=== PATIENT | female | born 1955 | race American Indian/Alaskan Native ===

== ENCOUNTER 2021-02-09 05:10 | Emergency (ER) | payer MEDICARE ==
[2021-02-09 09:15] VITALS: BP 135/72
--- NOTE | 2021-02-09 09:32 | XRay Report ---
CHEST 2 VIEWS INDICATION: cough, hemoptysis. COMPARISON: None FINDINGS: Support devices: None. Heart: Within normal limits. Lungs/pleura: No acute air space or interstitial disease. No pneumothorax. Additional findings: None. IMPRESSION: No acute findings. Signer Name: Luis Navarrete Jr, MD Signed: 02/09/2021 9:27 AM Workstation Name: [id number]
--- NOTE | 2021-02-09 10:00 | Emergency Department Report ---
ED General Adult HPI - General Chief complaint: Sore Throat Stated complaint: BLOOD IN PHLEGM Time Seen by Provider: 02/09/21 08:04 Source: patient Mode of arrival: Ambulatory Limitations: No Limitations - History of Present Illness Initial comments: 65-year-old -[place] female patient presents with complaints of coughing up blood this morning. She has a history of hypertension and states compliance with her medications. She denies any preceding shortness of breath, chest pain, fever/chills/sweats, recent known sick contacts, abdominal pain, abnormal bruising, melena/hematochezia, or hematemesis/coffee-ground emesis. She does report a flight from the [facility] 3 weeks ago, but denies any leg pain/swelling, hormone use, or history of DVT/PE/cancer. -: Sudden - Related Data Allergies Allergy/AdvReac Type Severity Reaction Status Date / Time No Known Allergies Allergy Unverified 02/09/21 05:24 ED Review of Systems ROS: Stated complaint: BLOOD IN PHLEGM Other details as noted in HPI Constitutional: denies: chills, diaphoresis, fever, malaise, weakness ENT: denies: throat pain Respiratory: cough. denies: shortness of breath, SOB with exertion, SOB at rest Cardiovascular: denies: chest pain Gastrointestinal: denies: abdominal pain, nausea, vomiting Neurological: denies: headache Hematological/Lymphatic: denies: easy bleeding ED Past Medical Hx - Past Medical History Previous Medical History?: Yes Hx Hypertension: Yes - Surgical History Past Surgical History?: No - Social History Smoking Status: Never Smoker Substance Use Type: None ED Physical Exam - General Limitations: No Limitations General appearance: alert, in no apparent distress - Head Head exam: Present: atraumatic, normocephalic - Eye Eye exam: Present: normal appearance. Absent: scleral icterus - Neck Neck exam: Present: normal inspection - Respiratory Respiratory exam: Present: normal lung sounds bilaterally. Absent: respiratory distress, chest wall tenderness - Cardiovascular Cardiovascular Exam: Present: regular rate, normal rhythm. Absent: systolic murmur, diastolic murmur, rubs, gallop - GI/Abdominal GI/Abdominal exam: Present: soft. Absent: distended, tenderness, guarding - Extremities Exam Extremities exam: Absent: calf tenderness (No swelling or tenderness noted bilaterally to lower extremities) - Neurological Exam Neurological exam: Present: alert, oriented X3, normal gait - Psychiatric Psychiatric exam: Present: normal affect, normal mood - Skin Skin exam: Present: warm, dry, intact, normal color. Absent: rash, cyanosis, diaphoretic, petechiae, ecchymosis ED Course Vital Signs 02/09/21 02/09/21 05:21 08:51 Temperature 97.9 F Pulse Rate 109 H 71 Respiratory 18 Rate Blood Pressure 148/82 135/72 O2 Sat by Pulse 98 98 Oximetry ED Medical Decision Making - Lab Data Result diagrams: 02/09/21 09:43 02/09/21 09:43 Lab Results 02/09/21 02/09/21 02/09/21 Range/Units 09:43 09:43 10:22 WBC 5.0 (4.5-11.0) K/mm3 RBC 3.91 (3.65-5.03) M/mm3 Hgb 12.1 (10.1-14.3) gm/dl Hct 35.6 (30.3-42.9) % MCV 91 (79-97) fl MCH 31 (28-32) pg MCHC 34 (30-34) % RDW 14.8 (13.2-15.2) % Plt Count 324 (140-440) K/mm3 Lymph % (Auto) 42.5 H (13.4-35.0) % Blair % (Auto) 6.0 (0.0-7.3) % Eos % (Auto) 1.7 (0.0-4.3) % Baso % (Auto) 0.6 (0.0-1.8) % Lymph # (Auto) 2.1 (1.2-5.4) K/mm3 Blair # (Auto) 0.3 (0.0-0.8) K/mm3 Eos # (Auto) 0.1 (0.0-0.4) K/mm3 Baso # (Auto) 0.0 (0.0-0.1) K/mm3 Seg Neutrophils % 49.2 (40.0-70.0) % Seg Neutrophils # 2.5 (1.8-7.7) K/mm3 D-Dimer 556.65 H (0-234) ng/mlDDU Sodium 140 (137-145) mmol/L Potassium 3.4 L (3.6-5.0) mmol/L Chloride 98.7 (98-107) mmol/L Carbon Dioxide 31 H (22-30) mmol/L Anion Gap 14 mmol/L BUN 19 H (7-17) mg/dL Creatinine 1.2 (0.6-1.2) mg/dL Estimated GFR 54 ml/min BUN/Creatinine Ratio 16 % Glucose 107 H (65-100) mg/dL Calcium 10.0 (8.4-10.2) mg/dL Total Bilirubin 0.30 (0.1-1.2) mg/dL AST 21 (5-40) units/L ALT 17 (7-56) units/L Alkaline Phosphatase 57 (35-129) units/L Troponin T (0.00-0.029) ng/mL Total Protein 7.9 (6.3-8.2) g/dL Albumin 4.5 (3.9-5) g/dL Albumin/Globulin Ratio 1.3 % // Range/Units 10:22 WBC (4.5-11.0) K/mm3 RBC (3.65-5.03) M/mm3 Hgb (10.1-14.3) gm/dl Hct (30.3-42.9) % MCV (79-97) fl MCH (28-32) pg MCHC (30-34) % RDW (13.2-15.2) % Plt Count (140-440) K/mm3 Lymph % (Auto) (13.4-35.0) % Blair % (Auto) (0.0-7.3) % Eos % (Auto) (0.0-4.3) % Baso % (Auto) (0.0-1.8) % Lymph # (Auto) (1.2-5.4) K/mm3 Blair # (Auto) (0.0-0.8) K/mm3 Eos # (Auto) (0.0-0.4) K/mm3 Baso # (Auto) (0.0-0.1) K/mm3 Seg Neutrophils % (40.0-70.0) % Seg Neutrophils # (1.8-7.7) K/mm3 D-Dimer (0-234) ng/mlDDU Sodium (137-145) mmol/L Potassium (3.6-5.0) mmol/L Chloride (98-107) mmol/L Carbon Dioxide (22-30) mmol/L Anion Gap mmol/L BUN (7-17) mg/dL Creatinine (0.6-1.2) mg/dL Estimated GFR ml/min BUN/Creatinine Ratio % Glucose (65-100) mg/dL Calcium (8.4-10.2) mg/dL Total Bilirubin (0.1-1.2) mg/dL AST (5-40) units/L ALT (7-56) units/L Alkaline Phosphatase (35-129) units/L Troponin T < 0.010 (0.00-0.029) ng/mL Total Protein (6.3-8.2) g/dL Albumin (3.9-5) g/dL Albumin/Globulin Ratio % - EKG Data EKG shows normal: sinus rhythm Rate: normal - EKG Data Interpretation: other (Nonspecific T wave abnormality) - Radiology Data Radiology results: report reviewed CHEST 2 VIEWS INDICATION: cough, hemoptysis. COMPARISON: None FINDINGS: Support devices: None. Heart: Within normal limits. Lungs/pleura: No acute air space or interstitial disease. No pneumothorax. Additional findings: None. IMPRESSION: No acute findings. - Medical Decision Making 65-year-old -[place] female patient presents with complaints of coughing up blood this morning. She has a history of hypertension and states compliance with her medications. She denies any preceding shortness of breath, chest pain, fever/chills/sweats, recent known sick contacts, abdominal pain, abnormal bruising, melena/hematochezia, or hematemesis/coffee-ground emesis. She does report a flight from the [facility] 3 weeks ago, but denies any leg pain/swelling, hormone use, or history of DVT/PE/cancer. PERC score = 3. Patient continues to deny chest pain. Chest x-ray is normal. No significant abnormalities noted on CBC. Mild hypokalemia noted on CMP, patient given p.o. potassium. Dimer positive. CTA chest negative for PE or infection, however shows small to medium pericardial effusion. Vitals are normal. Discussed patient with Dr. Lowe-states patient is stable for outpatient follow-up with cardiology. Patient sees a Dr. Miranda. Discussed findings of labs and imaging in detail with patient and importance of follow-up with her video technician within 3 days, she verbalizes understanding. Also discussed in detail signs and symptoms that should prompt immediate return to the emergency department with patient who again verbalizes understanding. Critical care attestation.: If time is entered above; I have spent that time in minutes in the direct care of this critically ill patient, excluding procedure time. ED Disposition Clinical Impression: Blood in sputum, Pericardial effusion Disposition: HOME / SELF CARE / HOMELESS Is pt being admited?: No Condition: Stable Instructions: Hemoptysis, [id number], Pericardial Effusion Additional Instructions: Please follow-up with your video technician within 3 days for further evaluation of your pericardial effusion
[2021-02-09 10:26] LABS: Basophils % (Auto) 0.6 % (0.0-1.8); Eosinophils # (Auto) 0.1 K/mm3 (0.0-0.4); Eosinophils % (Auto) 1.7 % (0.0-4.3); Hematocrit 35.6 % (30.3-42.9); Hemoglobin 12.1 gm/dl (10.1-14.3); Lymphocytes # (Auto) 2.1 K/mm3 (1.2-5.4); Lymphocytes % (Auto) 42.5 % (13.4-35.0); Mean Corpuscular HGB Conc 34 % (30-34); Mean Corpuscular Volume 91 fl (79-97); Monocytes # (Auto) 0.3 K/mm3 (0.0-0.8); Platelet Count 324 K/mm3 (140-440); Red Blood Count 3.91 M/mm3 (3.65-5.03); Red Cell Distribution Width 14.8 % (13.2-15.2)
[2021-02-09 10:53] LABS: Albumin 4.5 g/dL (3.9-5)
[2021-02-09] MEDS ORDERED: POTASSIUM CHLORIDE ER 20 MEQ TAB PO ONE (11:10)
--- NOTE | 2021-02-09 13:48 | Cat Scan Report ---
CTA CHEST WITH CONTRAST INDICATION : hemoptysis, +dimer. TECHNIQUE: Axial imaging performed through the chest, with contrast bolus timing set to maximize opa cification of the pulmonary arteries. Sagittal and coronal reformatted images. 3-plane MIP reformatte d images were obtained. All CT scans at this location are performed using CT dose reduction for ALAR A by means of automated exposure control. 100 mL of intravenous contrast administered. COMPARISON: None FINDINGS: Bolus: Contrast bolus timing is adequate. PTE: No filling defect is present to suggest PTE. Mediastinum: Heart size is within normal limits. A small pericardial effusion is identified. The aor ta and remaining mediastinal structures are unremarkable No pathologic mediastinal adenopathy. Lungs: There is minor linear scarring or atelectasis in the left lower lobe. Otherwise the lungs are clear. No pleural effusion or pneumothorax. Bones: Degenerative changes in the spine with nothing acute. Upper abdomen: Limited imaging of the upper abdomen shows nothing acute. IMPRESSION: No evidence for ulnar artery embolus. Small to medium pericardial effusion. Lungs clear. Signer Name: Luis Navarrete Jr, MD Signed: 02/09/2021 1:44 PM Workstation Name: [id number]
--- NOTE | 2021-02-10 09:21 | Electrocardiograph Report ---
[facility] Test Date: 2021-02-09 Test Time: 14:01:56 Pat Name: DK RAMIRZE Department: Room: Gender: F Miner Helper: : 1955 Requested By: STEFAN FELDER Order Number: [id number] Reading MD: Eligio St Measurements Intervals Sunflower Rate: 81 P: 41 SD: 185 QRS: -20 QRSD: 102 T: 144 QT: 379 QTc: 439 Interpretive Statements Sinus rhythm Inferior infarct, old poor r wave progression nonspecific st-t Nonspecific T abnormalities, lateral leads No previous ECG available for comparison Electronically Signed On 02-10-2021 9:20:[address]
== END 2021-02-09 15:25 | disposition home or self-care (01) ==
LOC: ED 05:10
DX: R04.2 Hemoptysis (principal); I31.3 Pericardial effusion (noninflammatory); I10 Essential (primary) hypertension
CPT/HCPCS: 36415; 71046; 71275; 80053; 84484; 85025; 85379; 85652; 86140; 93005; 99284; Q9967

== ENCOUNTER 2021-10-17 01:29 | Emergency (ER) | payer MEDICARE ==
--- NOTE | 2021-10-17 02:05 | XRay Report ---
CHEST 2 VIEWS INDICATION / CLINICAL INFORMATION: Chest tighness. COMPARISON: Chest x-ray 02/09/2021 FINDINGS: SUPPORT DEVICES: None. HEART / MEDIASTINUM: No significant abnormality. LUNGS / PLEURA: No significant pulmonary or pleural abnormality. No pneumothorax. BONES: No significant osseous abnormality. Stable dextroscoliosis mid to lower thoracic spine. ADDITIONAL FINDINGS: No significant additional findings. IMPRESSION: 1. No active cardiopulmonary disease. Signer Name: Camacho Cornelius II, MD Signed: 10/17/2021 2:01 AM Workstation Name: [id number]
[2021-10-17 02:09] LABS: Hematocrit 35.5 % (30.3-42.9); Hemoglobin 11.7 gm/dl (10.1-14.3); Mean Corpuscular HGB Conc 33 % (30-34); Mean Corpuscular Volume 92 fl (79-97); Platelet Count 331 K/mm3 (140-440); Red Blood Count 3.85 M/mm3 (3.65-5.03); Red Cell Distribution Width 14.4 % (13.2-15.2)
[2021-10-17 02:30] LABS: Alanine Aminotransferase 17 units/L (7-56); Albumin 4.4 g/dL (3.9-5); BUN/Creatinine Ratio 18; Blood Urea Nitrogen 20 mg/dL (7-17); Calcium 9.5 mg/dL (8.4-10.2); Hemolysis Index 19
[2021-10-17] MEDS ORDERED: ACETAMINOPHEN 325 MG TAB PO ONE (03:54)
[2021-10-17] MEDS ORDERED: diphenhydrAMINE 25 MG CAP PO ONE (03:54)
[2021-10-17] MEDS ORDERED: METOCLOPRAMIDE 10 MG TAB PO ONE (03:54)
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
[2021-10-17 04:22] LABS: Basophils % (Manual) 0 % (0.0-1.8); Total Cells Counted 100
[2021-10-17 04:23] LABS: Large Platelets Few; Platelet Estimate Consistent w Auto; RBC Morphology Normal
--- NOTE | 2021-10-17 04:53 | Cat Scan Report ---
CT HEAD WITHOUT CONTRAST INDICATION / CLINICAL INFORMATION: Patient complains of a headache. TECHNIQUE: CT head was performed without administration of intravenous contrast. All CT scans at this location are performed using CT dose reduction for ALARA by means of automated exposure control. COMPARISON: None available. FINDINGS: CEREBRAL HEMISPHERES: There is no evidence of large territorial infarction or significant abnormality of biswas-white matter differentiation. Ventricles appear within normal limits. No midline shift. Basa l cisterns patent. HEMORRHAGE: None. CEREBELLUM / BRAINSTEM: No significant abnormality. ORBITS: No significant abnormality. SOFT TISSUES: No significant abnormality. SKULL: No significant abnormality. PARANASAL SINUSES / MASTOID AIR CELLS: Normal as visualized. ADDITIONAL FINDINGS: None. IMPRESSION: 1. No acute intracranial abnormality. Signer Name: Camacho Cornelius II, MD Signed: 10/17/2021 4:48 AM Workstation Name: [id number]
[2021-10-17 05:17] VITALS: BP 118/67
--- NOTE | 2021-10-17 11:34 | Electrocardiograph Report ---
[facility] Test Date: 2021-10-17 Test Time: 01:43:52 Pat Name: DK RAMIREZ Department: Room: Gender: F Psychiatric Orderly: TANO Midd[place] : 1955 Requested By: MIKEY AVILES Order Number: [id number] Reading MD: Eligio St Measurements Intervals [place] Rate: 67 P: 47 [place]: 174 QRS: -1 QRSD: 104 T: 108 QT: 420 QTc: 444 Interpretive Statements Sinus rhythm Nonspecific T abnormalities, lateral leads Compared to ECG 02/09/2021 14:01:56 Myocardial infarct finding no longer present Poor R-wave progression no longer present T-wave abnormality still present Electronically Signed On 10-17-2021 11:33:[address]
== END 2021-10-17 06:09 | disposition home or self-care (01) ==
LOC: ED 01:29
DX: M79.10 Myalgia, unspecified site (principal); M54.2 Cervicalgia
CPT/HCPCS: 36415; 70450; 71046; 80053; 84484; 85007; 85025; 93005; 99284